=== PATIENT | female | born 1975 | race African-American/Black ===

== ENCOUNTER 2016-11-23 01:02 | Emergency (ER) | payer OTHER ==
[~2016-11-23] VITALS: Ht 160 cm; Wt 96.7 kg
[2016-11-23 01:06] VITALS: TEMP 36.7; Ht 160 cm; Wt 96.7 kg
[2016-11-23] MEDS ORDERED: KETOROLAC TROMETHAMINE 60 MG/2 ML VIAL IM STA (01:26)
[2016-11-23] MEDS ORDERED: PROMETHAZINE HCL INJ 25 MG/ML 1 ML VIAL IM STA (01:26)
[2016-11-23] MEDS ORDERED: DEXAMETHASONE SOD INJ 10 MG/ML VIAL IM ONE (01:30)
[2016-11-23 01:44] VITALS: BP 138/90; PULSE 90; O2SAT 98
--- NOTE | 2016-11-23 04:55 | EMERGENCY ROOM VISIT NOTE ---
ED Visit Note First contact with patient: 01:11 CHIEF COMPLAINT: Migraine headache HISTORY OF PRESENT ILLNESS: This 41-year-old female patient presented to the emergency department with a gradual onset of a severe generalized headache that started worsening over the past 5 days. The patient states the migraine is similar to their typical migraines. There has been associated photophobia, phonophobia, nausea and vomiting. The patient denies fever or chills recently, and there is no weakness or numbness of the extremities. There is no difficulty with speech or vision. No trauma to the head and no neck pain. The pain is severe, constant, and it is slowly increasing in severity. The patient rates the pain as dull and 8/10. The patient has taken nothing for her symptoms. This is not the worst headache of the life and is similar to previous migraines. She states that stress often causes her discomfort to trigger, and she has been under increased stressors at work. Previous imaging studies of the brain have been normal. REVIEW OF SYSTEMS: A review of systems was performed with positives and pertinent negatives listed in the history of present illness. All other systems were reviewed and are negative. ALLERGIES: No known allergies MEDICATIONS: See EMR PMH: See EMR SOCIAL HISTORY: Lives locally with family PHYSICAL EXAM: Vital Signs: Reviewed Nurse's notes, vital signs stable. GENERAL: Black female, who appears in pain, but non toxic in appearance and in no acute distress. MENTAL STATUS: Alert, oriented, and coherent. HEENT: Normocephalic. PERRLA. EOMI. Nares patent without nuchal rigidity. Tympanic membranes pearly woodall without erythema or effusion bilaterally. Mucous membranes moist. NECK: Supple, no nuchal rigidity, nontender, no lymphadenopathy. HEART: Regular rhythm and normal rate without murmurs, ectopy, gallops, or rubs. LUNGS: Clear to auscultation bilaterally without wheezes, rales or rhonchi. No dullness to percussion. No accessory muscle use. No retractions. SKIN: Normal. NEUROLOGICAL: Pupils are round, equal and react to light. The optic fundi are normal and the discs are flat. The patient moves all extremities well and the gait is normal. EMERGENCY DEPARTMENT COURSE: I examined the patient. She evidently has a history of migraine headaches and this feels similar to previous. She does not have signs of meningitis or encephalitis. She does not have neurologic deficit. I discussed options of care with the patient, and elected to provide her 60 mg IM Toradol, 10 mg IM Decadron, 25 mg IM Phenergan. The differential diagnosis includes acute intracranial bleed, meningitis, encephalitis, mass or mass effect, sinusitis, infection, tumor, headache, temporal arteritis and carbon monoxide exposure, and migraine. Current/Historical Medications No Active Prescriptions or Reported Meds Allergies Coded Allergies: No Known Allergies (Unverified , 11/23/16) Vital Signs Date Time Temp Pulse Resp B/P (MAP) Pulse Ox O2 Delivery O2 Flow Rate FiO2 11/23/16 01:44 90 20 138/90 98 11/23/16 01:06 36.7 83 20 141/91 97 Room Air Medications Administered Medications (Trade) Dose Ordered Sig/Jack Route Start Time Stop Time Status Last Admin Dose Admin Dexamethasone Sodium Phosphate (Decadron Inj) 10 mg NOW ONCE IM 11/23/16 01:30 11/23/16 01:31 DC 11/23/16 01:39 10 MG Promethazine HCl (Phenergan Inj) 25 mg NOW STAT IM 11/23/16 01:26 11/23/16 01:28 DC 11/23/16 01:39 25 MG Ketorolac Tromethamine (Toradol Inj) 60 mg NOW STAT IM 11/23/16 01:26 11/23/16 01:28 DC 11/23/16 01:39 60 MG Departure Information Impression Primary Impression: Headache Dispostion Home / Self-Care Condition GOOD Prescriptions No Active Prescriptions or Reported Meds Referrals No Doctor, Assigned (PCP) Forms HOME CARE DOCUMENTATION FORM, IMPORTANT VISIT INFORMATION Patient Instructions My [facility] Additional Instructions You were seen and evaluated today on an emergency basis only. This is not a substitute for, or an effort to provide, complete comprehensive medical care. It is not possible to recognize and treat all injuries or illnesses in a single emergency department visit. For this reason it is recommended that you followup with your primary care physician or neurologist this week for ongoing care and evaluation. Rest today in a quiet, peaceful, dark environment and get a full 8-10 hrs of sleep tonight. Avoid loud noises, smoke/smoking, alcohol, bright lights, stress, or physical exertion today to minimize the chance the headache may return. Continue current medications. Ibuprofen(Motrin, Advil) may be used for fever or pain. Use 600mg every six hours as needed. Take with food. Avoid using more than 2400mg in a 24 hour period. Do not use 2400mg per day for more than three consecutive days without physician direction. Prolonged inappropriate use can lead to stomach upset or ulcers. (AND/OR) Acetaminophen(Tylenol) may be used for fever or pain. Use 1000mg every six hours as needed. Avoid using more than 4000mg in a 24 hour period. Return to the ER for passing out, worsening headache, vision problems, neck stiffness/pain, fevers, vomiting, worsening of your condition, or as needed.
== END 2016-11-23 01:44 | disposition home or self-care (01) ==
LOC: C.EDB 01:03
DX: R51 Headache (principal)

== ENCOUNTER 2022-07-01 19:20 | Inpatient (IN) ==
[2022-07-01] MEDS ORDERED: SODIUM CHLORIDE 0.9% 1000ML 1,000 ML IV SCH (20:00)
[2022-07-01] MEDS ORDERED: VANCOMYCIN CONSULT ACTIVE PRN (20:02)
[2022-07-01] MEDS ORDERED: VANCOMYCIN HCL 2,250 MG in SODIUM CHLORIDE 0.9% 500 ML IV ONE (20:02)
[2022-07-01] MEDS ORDERED: CEFEPIME 2,000 MG/20 ML VIAL IV STA (20:02)
[2022-07-01] MEDS ORDERED: KETOROLAC TROMETHAMINE 15 MG/ML VIAL IV STA (20:03)
[2022-07-01] MEDS ORDERED: SODIUM CHLORIDE 0.9% 1000ML 1,000 ML IV ONE (20:03)
[2022-07-01] MEDS ORDERED: ONDANSETRON INJ 2 MG/ML 2 ML VIAL IV STA (20:03)
[2022-07-01] MEDS ORDERED: ACETAMINOPHEN 1,000 MG/100 ML VIAL IV STA (20:03)
[2022-07-01 20:10] LABS: Appearance Urine Cloudy (Clear); Bacteria Urine Automated Negative (Negative); Bilirubin Urine Negative (Negative); Blood Urine 1+ (Negative); Color Urine Dark Yellow; Glucose Urine UA Negative (Negative); Ketones Urine Trace (Negative); Leukocyte Esterase Urine 1+ (Negative); Nitrite Urine Negative (Negative); Protein Urine 1+ (Negative); RBC Urine Automated 0-4 /hpf (0-4); Specific Gravity Urine 1.022 (1.000-1.030); Urobilinogen Urine Negative (Negative); pH Urine 5.5 (4.5-7.5)
--- NOTE | 2022-07-01 20:11 | Emergency Department Note ---
Impression & Plan Sepsis, Headache, Cellulitis, Leukocytosis, Elevated lactic acid level, Immunocompromised ED Provider Note NAME: ANA MCINTOSH AGE: 46 SEX: F : 1975 ARRIVES VIA: Walk-In INFORMANT: [Patient] ED PROVIDER(S): [Dave Epstein MD] CHIEF COMPLAINT: Headache, rash HISTORY OF PRESENT ILLNESS: The patient is a 46-year-old female with a history of uveitis. She was using Humira and then was switched to Cosentyx. Cosentyx was recently stopped and she is now on an IV infusion, she cannot recall the name of the medication. She states that for the last 3 or so weeks, she has a rash on her feet arms and scalp. Her doctors think the rash is psoriasis brought on by her infusion. The patient states that she has had a headache on the right side for about 2 weeks. Today, she felt chilled and achy and feverish. She was tired. She noticed some lumps on the right side of her head behind her ear and on the right posterior scalp. She states the lumps are sore. There has been no cough or congestion. No shortness of breath. No urinary complaints. No abdominal pain, no vomiting or diarrhea. PMHx/PSHx: See Below SOCIAL HISTORY: See Below. PHYSICAL EXAM: GENERAL: Patient is in no acute distress. HEENT: No acute trauma, normocephalic atraumatic, mucous membranes moist, no nasal congestion. There is a tender half centimeter nodule to the posterior aspect of the right ear. There is a second smaller nodule to the right posterior scalp. NECK: No stridor, no adenopathy, no meningismus, trachea is midline. Flexes the chin to the chest without pain or difficulty. LUNGS: Clear to auscultation bilaterally, no wheeze, no rhonchi, breath sounds equal. HEART: Without murmurs gallops or rubs, regular rate and rhythm. ABDOMEN: Soft, nontender, bowel sounds positive, no peritonitis. EXTREMITIES: No cyanosis or edema, full range of motion of all the joints without pain or difficulty, no signs for acute trauma. NEUROLOGIC: Oriented x 3, no acute motor or sensory deficits, no focal weakness. SKIN: The patient has a scaly rash on her feet, wrists and hands. There is some drainage noted. There is some warmth on the feet consistent with potential cellulitis. DIFFERENTIAL DIAGNOSIS: Sepsis or bacteremia, cellulitis, UTI, viral illness, medication reaction, meningitis, among others. EMERGENCY DEPARTMENT COURSE/PROCEDURES: Prior/Outside records reviewed: Previous ED visit Critical Care Note: I have personally spent 44 minutes of critical care time in the direct management of this patient. This includes bedside care, interpretation of diagnostic studies, and testing, discussion with consultants, patient, and family members, and other required patient management activities. This 44 minutes is in excess of all separately billable procedures. MEDICAL DECISION MAKING: There is a mild leukocytosis, this would be consistent with infection. There is a normal hemoglobin and platelet count. Sodium low at 131. There was an elevation to the creatinine however, this appears baseline looking back at previous testing. Lactic acid level was elevated consistent with potential sepsis/infection. Repeat lactic acid level showed improvement in the value. There was no concerning liver enzyme elevation. testing was negative. Urinalysis showed contamination, no obvious infection. Respiratory bio fire was completely negative. Chest film does not show pneumonia or CHF per my review. Brain CT showed no acute bleed or mass effect. On exam, the patient had a lower extremity cellulitis and also what appeared to be a cellulitis of her scalp. She presented febrile. There was no meningismus. Patient received IV cefepime and IV vancomycin. She was given IV saline, 2 L. She received IV Zofran for nausea, IV Toradol for pain, IV Tylenol for pain. The patient is currently resting comfortably. I do think she requires a hospital stay. She appears to have early sepsis, likely from cellulitis. She is immunocompromised. I suspect her right-sided headache is from the swollen glands noted on exam, the cellulitis of the scalp likely led to the lymph gland swelling. I did speak with the patient and case management, the on-call hospitalist was consulted. DISPOSITION: Patient's presentation and findings warrant a hospital stay. Past Med/Surg History Medical History Acid reflux Hypertension Uveitis Family History Other Family history non-contributory Social History Smoking Status: Never smoker Preferred Language: Albanian Visual Impairment: Partially Limited marital status: current occupational status: employed Feels Safe at Home: Yes Allergies Allergies Allergy/AdvReac Type Severity Reaction Status Date / Time No Known Allergies Allergy Verified 07/01/22 20:06 Home Meds Home Medications Medication Instructions Recorded Confirmed albuterol sulfate 90 mcg/actuation 2 puff inhalation Q4H PRN Wheezing 07/01/22 07/01/22 aerosol inhaler atropine 1 % eye drops 1 drp OPR BID 07/01/22 07/01/22 betamethasone dipropionate 0.05 % 1 applic topical BID 07/01/22 07/01/22 topical cream brimonidine 0.15 % eye drops 1 drp OPB TID 07/01/22 07/01/22 difluprednate 0.05 % eye drops 1 drp OPR QID 07/01/22 07/01/22 dorzolamide 2 % eye drops 1 drp OPB TID 07/01/22 07/01/22 lisinopril 20 mg tablet 20 mg PO QAM 07/01/22 07/01/22 lurasidone 20 mg tablet (Latuda) 0 mg PO QAM 07/01/22 07/01/22 prednisolone acetate 1 % eye 1 drp OPB 6XD 07/01/22 07/01/22 drops,suspension tacrolimus 0.1 % topical ointment 1 applic topical BID 07/01/22 07/01/22 timolol maleate 0.5 % eye drops 1 drp OPB BID 07/01/22 07/01/22 triamcinolone acetonide 0.1 % 1 applic topical BID 07/01/22 07/01/22 topical cream Results & Data (ED) Vital Signs Vital Signs - 24 hr 07/01/22 19:25 07/01/22 19:40 07/01/22 21:00 Temperature 38.1 C H Temperature Source Temporal Artery Scan Pulse Rate 123 H 115 H Pulse Rate [Apical] 105 H Pulse Rhythm [Apical] Regular Respiratory Rate 18 14 Respiratory Effort / Characteristics Non-Labored Spontaneous Non-Labored Spontaneous Respiratory Depth Normal Normal Respiratory Pattern Regular Blood Pressure 153/84 H Blood Pressure [Left Arm] 153/94 H Blood Pressure Mean 107 Blood Pressure Mean [Left Arm] 113 Blood Pressure Position Sitting Pulse Oximetry 98 98 Oxygen Delivery Method Room Air Room Air Sepsis Recent Fever Within 48 Hours Yes Sepsis New/Unexplained Change in Mental Status No Sepsis Action Taken by Nursing No Action Required 07/01/22 23:03 07/01/22 23:35 07/02/22 00:11 Temperature Temperature Source Pulse Rate 83 Pulse Rate [Apical] 90 80 Pulse Rhythm [Apical] Respiratory Rate 18 16 Respiratory Effort / Characteristics Respiratory Depth Respiratory Pattern Blood Pressure Blood Pressure [Left Arm] 135/113 H 119/80 Blood Pressure Mean Blood Pressure Mean [Left Arm] 120 93 Blood Pressure Position Pulse Oximetry 99 97 Oxygen Delivery Method Room Air Room Air Sepsis Recent Fever Within 48 Hours Sepsis New/Unexplained Change in Mental Status Sepsis Action Taken by Usp Medications Current Medication List: was personally reviewed by me Laboratory Data Attestation: I reviewed the patient's lab results. 07/01/22 19:47 07/01/22 19:47 Lab Results 07/01/22 07/01/22 07/01/22 Range/Units 19:41 19:47 19:47 WBC 13.95 H (4.8-10.8) K/ul RBC 4.40 (4.20-5.40) M/uL Hgb 13.7 (12.0-16.0) g/dl Hct 39.5 (37.0-47.0) % MCV 89.8 (80.0-100.0) fL MCH 31.1 (25.0-34.0) pg MCHC 34.7 (32.0-36.0) g/dL RDW Std Deviation 41.3 (36.4-46.3) fL RDW Coeff of Rosario 12.6 (11.5-14.5) % Plt Count 286 (130-400) K/uL MPV 10.0 (9.4-12.4) fL Immature Gran % (Auto) 0.3 % Neut % (Auto) 66.5 % Lymph % (Auto) 17.5 % Cottle % (Auto) 13.0 % Eos % (Auto) 2.5 % Baso % (Auto) 0.2 % Neut # (Auto) 9.27 H (1.40-6.50) K/uL Lymph # (Auto) 2.44 (1.2-3.4) K/uL Cottle # (Auto) 1.82 H (0.11-0.59) K/uL Eos # (Auto) 0.35 (0-0.50) K/uL Baso # (Auto) 0.03 (0-0.2) K/uL Immature Gran # (Auto) 0.04 (0.01-0.20) K/uL Sodium 131 L (136-145) mmol/L Potassium 3.6 (3.5-5.1) mmol/L Chloride 98 (98-107) mmol/L Carbon Dioxide 24 (21-32) mmol/L Anion Gap 9 (3-11) BUN 12 (6-23) mg/dl Creatinine 1.51 H (0.6-1.2) mg/dl Est Cr Clr Drug Dosing 49.2 ml/min Est GFR ( Amer) 46.9 ml/min Est GFR (Non-Af Amer) 40.4 ml/min BUN/Creatinine Ratio 7.9 L (10-20) Glucose 108 H (70-99(Fasting)) mg/dl Lactate (0.4-2.0) mmol/L Calcium 9.3 (8.6-10.3) mg/dl Magnesium 1.9 (1.7-2.4) mg/dl Total Bilirubin 0.4 (0.2-1.0) mg/dl AST 17 (13-39) U/L ALT 11 (7-52) U/L Alkaline Phosphatase 48 (34-104) U/L Total Protein 8.1 (6.0-8.3) gm/dl Albumin 4.1 (3.4-5.0) gm/dl Globulin 4.0 (2.5-4.0) gm/dl Albumin/Globulin Ratio 1.0 (0.9-2) HCG, Qual (Negative) Urine Color Dark Yellow Urine Appearance Cloudy A (Clear) Urine pH 5.5 (4.5-7.5) Ur Specific [place] 1.022 (1.000-1.030) Urine Protein 1+ H (Negative) Urine Glucose (UA) Negative (Negative) Urine Ketones Trace H (Negative) Urine Blood 1+ H (Negative) Urine Nitrite Negative (Negative) Urine Bilirubin Negative (Negative) Urine Urobilinogen Negative (Negative) Ur Leukocyte Esterase 1+ H (Negative) Urine WBC (Auto) 10-30 H (0-5) /hpf Urine RBC (Auto) 0-4 (0-4) /hpf U Hyaline Cast (Auto) 10-30 H (0-5) /lpf U Epithel Cells (Auto) 10-20 H (0-5) /lpf Urine Bacteria (Auto) Negative (Negative) Urine Crystals Calcium Oxalate A (None Prsent) Calcium Oxalate Crystal Present A (None Prsent) Urine Yeast Not Reportable Adenovirus (PCR) (NotDetected) B. pertussis DNA (PCR) (NotDetected) B.parapertussis DNA PCR (NotDetected) Lyme Disease IgG Ab (Negative) Lyme Disease IgM Ab (Negative) C. pneumoniae DNA (PCR) (NotDetected) Coronavirus OC43 (PCR) (NotDetected) Coronavirus HKU1 (PCR) (NotDetected) Coronavirus 229E (PCR) (NotDetected) SARS-CoV-2 (PCR) (NotDetected) Coronavirus NL63 (PCR) (NotDetected) Human Metapneumovir PCR (NotDetected) Influenza Type A (PCR) (NotDetected) Influenza Type B (PCR) (NotDetected) M. pneumoniae (PCR) (NotDetected) Parainfluenza 1 (PCR) (NotDetected) Parainfluenza 2 (PCR) (NotDetected) Parainfluenza 3 (PCR) (NotDetected) Parainfluenza 4 (PCR) (NotDetected) RSV (PCR) (NotDetected) Entero/Rhino (PCR) (NotDetected) 07/01/22 07/01/22 07/01/22 Range/Units 19:47 20:10 20:24 WBC (4.8-10.8) K/ul RBC (4.20-5.40) M/uL Hgb (12.0-16.0) g/dl Hct (37.0-47.0) % MCV (80.0-100.0) fL MCH (25.0-34.0) pg MCHC (32.0-36.0) g/dL RDW Std Deviation (36.4-46.3) fL RDW Coeff of Rosario (11.5-14.5) % Plt Count (130-400) K/uL MPV (9.4-12.4) fL Immature Gran % (Auto) % Neut % (Auto) % Lymph % (Auto) % Cottle % (Auto) % Eos % (Auto) % Baso % (Auto) % Neut # (Auto) (1.40-6.50) K/uL Lymph # (Auto) (1.2-3.4) K/uL Cottle # (Auto) (0.11-0.59) K/uL Eos # (Auto) (0-0.50) K/uL Baso # (Auto) (0-0.2) K/uL Immature Gran # (Auto) (0.01-0.20) K/uL Sodium (136-145) mmol/L Potassium (3.5-5.1) mmol/L Chloride (98-107) mmol/L Carbon Dioxide (21-32) mmol/L Anion Gap (3-11) BUN (6-23) mg/dl Creatinine (0.6-1.2) mg/dl Est Cr Clr Drug Dosing ml/min Est GFR ( Amer) ml/min Est GFR (Non-Af Amer) ml/min BUN/Creatinine Ratio (10-20) Glucose (70-99(Fasting)) mg/dl Lactate 2.8 H* (0.4-2.0) mmol/L Calcium (8.6-10.3) mg/dl Magnesium (1.7-2.4) mg/dl Total Bilirubin (0.2-1.0) mg/dl AST (13-39) U/L ALT (7-52) U/L Alkaline Phosphatase (34-104) U/L Total Protein (6.0-8.3) gm/dl Albumin (3.4-5.0) gm/dl Globulin (2.5-4.0) gm/dl Albumin/Globulin Ratio (0.9-2) HCG, Qual Negative (Negative) Urine Color Urine Appearance (Clear) Urine pH (4.5-7.5) Ur Specific [place] (1.000-1.030) Urine Protein (Negative) Urine Glucose (UA) (Negative) Urine Ketones (Negative) Urine Blood (Negative) Urine Nitrite (Negative) Urine Bilirubin (Negative) Urine Urobilinogen (Negative) Ur Leukocyte Esterase (Negative) Urine WBC (Auto) (0-5) /hpf Urine RBC (Auto) (0-4) /hpf U Hyaline Cast (Auto) (0-5) /lpf U Epithel Cells (Auto) (0-5) /lpf Urine Bacteria (Auto) (Negative) Urine Crystals (None Prsent) Calcium Oxalate Crystal (None Prsent) Urine Yeast Adenovirus (PCR) Not Detected (NotDetected) B. pertussis DNA (PCR) Not Detected (NotDetected) B.parapertussis DNA PCR Not Detected (NotDetected) Lyme Disease IgG Ab Negative (Negative) Lyme Disease IgM Ab Negative (Negative) C. pneumoniae DNA (PCR) Not Detected (NotDetected) Coronavirus OC43 (PCR) Not Detected (NotDetected) Coronavirus HKU1 (PCR) Not Detected (NotDetected) Coronavirus 229E (PCR) Not Detected (NotDetected) SARS-CoV-2 (PCR) Not Detected (NotDetected) Coronavirus NL63 (PCR) Not Detected (NotDetected) Human Metapneumovir PCR Not Detected (NotDetected) Influenza Type A (PCR) Not Detected (NotDetected) Influenza Type B (PCR) Not Detected (NotDetected) M. pneumoniae (PCR) Not Detected (NotDetected) Parainfluenza 1 (PCR) Not Detected (NotDetected) Parainfluenza 2 (PCR) Not Detected (NotDetected) Parainfluenza 3 (PCR) Not Detected (NotDetected) Parainfluenza 4 (PCR) Not Detected (NotDetected) RSV (PCR) Not Detected (NotDetected) Entero/Rhino (PCR) Not Detected (NotDetected) 07/01/22 Range/Units 22:22 WBC (4.8-10.8) K/ul RBC (4.20-5.40) M/uL Hgb (12.0-16.0) g/dl Hct (37.0-47.0) % MCV (80.0-100.0) fL MCH (25.0-34.0) pg MCHC (32.0-36.0) g/dL RDW Std Deviation (36.4-46.3) fL RDW Coeff of Rosario (11.5-14.5) % Plt Count (130-400) K/uL MPV (9.4-12.4) fL Immature Gran % (Auto) % Neut % (Auto) % Lymph % (Auto) % Cottle % (Auto) % Eos % (Auto) % Baso % (Auto) % Neut # (Auto) (1.40-6.50) K/uL Lymph # (Auto) (1.2-3.4) K/uL [place]le # (Auto) (0.11-0.59) K/uL Eos # (Auto) (0-0.50) K/uL Baso # (Auto) (0-0.2) K/uL Immature Gran # (Auto) (0.01-0.20) K/uL Sodium (136-145) mmol/L Potassium (3.5-5.1) mmol/L Chloride (98-107) mmol/L Carbon Dioxide (21-32) mmol/L Anion Gap (3-11) BUN (6-23) mg/dl Creatinine (0.6-1.2) mg/dl Est Cr Clr Drug Dosing ml/min Est GFR ( Amer) ml/min Est GFR (Non-Af Amer) ml/min BUN/Creatinine Ratio (10-20) Glucose (70-99(Fasting)) mg/dl Lactate 0.8 (0.4-2.0) mmol/L Calcium (8.6-10.3) mg/dl Magnesium (1.7-2.4) mg/dl Total Bilirubin (0.2-1.0) mg/dl AST (13-39) U/L ALT (7-52) U/L Alkaline Phosphatase (34-104) U/L Total Protein (6.0-8.3) gm/dl Albumin (3.4-5.0) gm/dl Globulin (2.5-4.0) gm/dl Albumin/Globulin Ratio (0.9-2) HCG, Qual (Negative) Urine Color Urine Appearance (Clear) Urine pH (4.5-7.5) Ur Specific [place] (1.000-1.030) Urine Protein (Negative) Urine Glucose (UA) (Negative) Urine Ketones (Negative) Urine Blood (Negative) Urine Nitrite (Negative) Urine Bilirubin (Negative) Urine Urobilinogen (Negative) Ur Leukocyte Esterase (Negative) Urine WBC (Auto) (0-5) /hpf Urine RBC (Auto) (0-4) /hpf U Hyaline Cast (Auto) (0-5) /lpf U Epithel Cells (Auto) (0-5) /lpf Urine Bacteria (Auto) (Negative) Urine Crystals (None Prsent) Calcium Oxalate Crystal (None Prsent) Urine Yeast Adenovirus (PCR) (NotDetected) B. pertussis DNA (PCR) (NotDetected) B.parapertussis DNA PCR (NotDetected) Lyme Disease IgG Ab (Negative) Lyme Disease IgM Ab (Negative) C. pneumoniae DNA (PCR) (NotDetected) Coronavirus OC43 (PCR) (NotDetected) Coronavirus HKU1 (PCR) (NotDetected) Coronavirus 229E (PCR) (NotDetected) SARS-CoV-2 (PCR) (NotDetected) Coronavirus NL63 (PCR) (NotDetected) Human Metapneumovir PCR (NotDetected) Influenza Type A (PCR) (NotDetected) Influenza Type B (PCR) (NotDetected) M. pneumoniae (PCR) (NotDetected) Parainfluenza 1 (PCR) (NotDetected) Parainfluenza 2 (PCR) (NotDetected) Parainfluenza 3 (PCR) (NotDetected) Parainfluenza 4 (PCR) (NotDetected) RSV (PCR) (NotDetected) Entero/Rhino (PCR) (NotDetected) Administered Medications Discontinued Medications Hydromorphone HCl (Hydromorphone Inj 0.5 Mg/0.5 Ml Syr) 0.5 mg IV NOW STA Stop: 07/01/22 22:44 Last Admin: 07/01/22 23:07 Dose: 0.5 mg Documented By: BRAEDEN Sodium Chloride (Nss 1000ml) 1,000 mls @ 999 mls/hr IV .Q1H1M [id number] Stop: 07/01/22 21:00 Last Infusion: 07/01/22 21:25 Dose: 0 mls/hr Documented By: Admin: 07/01/22 20:15 Dose: 999 mls/hr Documented By: BRAEDEN Cefepime HCl (Maxipime) 2,000 mg in 20 mls @ 5 mls/min IV NOW STA; Protocol Stop: 07/01/22 20:05 Last Admin: 07/01/22 20:20 Dose: 5 mls/min Documented By: BRAEDEN Vancomycin HCl 2,250 mg/ (Sodium Chloride) 545 mls @ 200 mls/hr IV NOW ONE Stop: 07/01/22 22:45 Last Admin: 07/01/22 20:59 Dose: 200 mls/hr Documented By: BRAEDEN Sodium Chloride (Nss 1000ml) 1,000 mls @ 999 mls/hr IV .Q1H1M ONE Stop: 07/01/22 21:03 Last Infusion: 07/01/22 21:25 Dose: 0 mls/hr Documented By: Admin: 07/01/22 20:15 Dose: 999 mls/hr Documented By: BRAEDEN Acetaminophen (Ofirmev) 1,000 mg in 100 mls @ 400 mls/hr IV NOW STA Stop: 07/01/22 20:17 Last Infusion: 07/01/22 21:13 Dose: 0 mls/hr Documented By: Admin: 07/01/22 20:15 Dose: 400 mls/hr Documented By: BRAEDEN Ketorolac Tromethamine (Ketorolac Tromethamine 15 Mg/Ml Vial) 15 mg IV NOW STA Stop: 07/01/22 20:04 Last Admin: 07/01/22 20:15 Dose: 15 mg Documented By: BRAEDEN Ondansetron HCl (Ondansetron Inj 2 Mg/Ml 2 Ml Vial) 4 mg IV NOW STA Stop: 07/01/22 20:04 Last Admin: 07/01/22 20:15 Dose: 4 mg Documented By: BRAEDEN Imaging Data Attestation: I personally reviewed and interpreted this imaging study as follows: My Impression: Chest x-ray: Per my review there is no pneumonia, CHF or pneumothorax. Radiologist's Impression: Head CT 07/01/22 20:02 Exam(s): CT HEAD Without Contrast EXAM: CT Head Without Intravenous Contrast CLINICAL HISTORY: Reason for exam: headache. TECHNIQUE: Axial computed tomography images of the head/brain without intravenous contrast. Automated exposure control was utilized for the study. A dose lowering technique was utilized adhering to the principles of ALARA. COMPARISON: No relevant prior studies available. FINDINGS: No acute intracranial hemorrhage. No midline shift or mass effect. The territorial woodall-white matter differentiation is maintained throughout. The ventricles and sulci are commensurate with age. The visualized orbits appear grossly unremarkable. The calvarium is intact. The visualized paranasal sinuses and mastoid air cells are grossly clear. IMPRESSION: No acute intracranial hemorrhage, midline shift, or mass effect. Electronically signed by: Mauro Barnard MD 07/01/22 21:35 PM Discharge Plan Visit Data Chief Complaint: Headache Stated Complaint: HEADACHE FOR 2 WEEKS, KNOT BEHIND EAR ED Provider: Dave Epstein Discharge Problem: Sepsis, Headache, Cellulitis, Leukocytosis, Elevated lactic acid level, Immunocompromised Patient Disposition: Admitted As Inpatient Condition: Fair Forms Stand Alone Forms: [facility] Prescriptions Prescriptions: No Action lisinopril 20 mg Tablet 20 mg PO QAM triamcinolone acetonide 0.1 % Cream 1 applic TOPICAL BID Rx Instructions: APPLY TO HANDS & FEET prednisolone acetate 1 % Drops,Suspension 1 drp OPB 6XD tacrolimus 0.1 % Ointment 1 applic TOPICAL BID Rx Instructions: APPLY TO HANDS & FEET betamethasone dipropionate 0.05 % Cream 1 applic TOPICAL BID Rx Instructions: APPLY TO HANDS & FEET albuterol sulfate 90 mcg/actuation HFA aerosol inhaler 2 puff INHALATION Q4H PRN (Reason: Wheezing) timolol maleate 0.5 % Drops 1 drp OPB BID atropine 1 % Drops 1 drp OPR BID brimonidine 0.15 % Drops 1 drp OPB TID Rx Instructions: administer approximately 8 hours apart dorzolamide 2 % Drops 1 drp OPB TID difluprednate 0.05 % Drops 1 drp OPR QID Rx Instructions: start 24 hours after surgery lurasidone [Latuda] 20 mg Tablet 0 mg PO QAM Rx Instructions: PT UNSURE OF STRENGTH, STATED "LOWEST DOSE", UNABLE TO VERIFY WITH GMG OR EXT MED HX. must administer with food (at least 350 calories) Referrals Referrals: PCP,NO [Primary Care Provider] -
[2022-07-01 20:13] LABS: Basophils # (auto) 0.03 K/uL (0-0.2); Basophils % (auto) 0.2 %; Eosinophils # (auto) 0.35 K/uL (0-0.50); Eosinophils % (auto) 2.5 %; Hematocrit (blood only) 39.5 % (37.0-47.0); Hemoglobin 13.7 g/dl (12.0-16.0); Immature Granulocytes # (auto) 0.04 K/uL (0.01-0.20); Immature Granulocytes % (auto) 0.3 %; Lymphocytes # (auto) 2.44 K/uL (1.2-3.4); Lymphocytes % (auto) 17.5 %; Mean Corpuscular Hemoglobin 31.1 pg (25.0-34.0); Mean Corpuscular Hgb Conc 34.7 g/dL (32.0-36.0); Mean Corpuscular Volume 89.8 fL (80.0-100.0); Monocytes # (auto) 1.82 K/uL (0.11-0.59); Neutrophils # (auto) 9.27 K/uL (1.40-6.50); Neutrophils % (auto) 66.5 %; Platelet Count 286 K/uL (130-400); RDW Coefficient of Variation 12.6 % (11.5-14.5); RDW Standard Deviation 41.3 fL (36.4-46.3); White Blood Count 13.95 K/ul (4.8-10.8)
[2022-07-01 20:27] LABS: Calcium Oxalate Crystals Urine Present (None Prsent)
[2022-07-01 20:29] LABS: Albumin Level 4.1 gm/dl (3.4-5.0); BUN Creatinine Ratio 7.9 (10-20); Bilirubin,Total 0.4 mg/dl (0.2-1.0); Calcium 9.3 mg/dl (8.6-10.3); Creatinine Clr Calc Pharmacy 49.2 ml/min; Est GFR (African American) 46.9 ml/min; Est GFR (Non-African American) 40.4 ml/min; Magnesium 1.9 mg/dl (1.7-2.4); Potassium 3.6 mmol/L (3.5-5.1); Total Protein 8.1 gm/dl (6.0-8.3)
[2022-07-01 20:49] LABS: Pregnancy Test, Serum Negative (Negative)
[2022-07-01 21:14] LABS: Lyme Ab IgG w/WB Rflx Negative (Negative); Lyme Ab IgM w/WB Rflx Negative (Negative)
[2022-07-01 21:35] LABS: Adenovirus PCR Not Detected (NotDetected); Bordetella parapertussis PCR Not Detected (NotDetected); Bordetella pertussis PCR Not Detected (NotDetected); Chlamydia pneumoniae PCR Not Detected (NotDetected); Coronavirus 229E PCR Not Detected (NotDetected); Coronavirus CoV-2 (COVID19)PCR Not Detected (NotDetected); Coronavirus HKU1 PCR Not Detected (NotDetected); Coronavirus NL63 PCR Not Detected (NotDetected); Coronavirus OC43PCR Not Detected (NotDetected); Human Metapneumovirus PCR Not Detected (NotDetected); Influenza A PCR Not Detected (NotDetected); Influenza B PCR Not Detected (NotDetected); Mycoplasma pneumoniae PCR Not Detected (NotDetected); Parainfluenza Virus 1 PCR Not Detected (NotDetected); Parainfluenza Virus 2 PCR Not Detected (NotDetected); Parainfluenza Virus 3 PCR Not Detected (NotDetected); Parainfluenza Virus 4 PCR Not Detected (NotDetected); Respiratory Syncytial VirusPCR Not Detected (NotDetected); Rhinovirus/Enterovirus PCR Not Detected (NotDetected)
--- NOTE | 2022-07-01 21:36 | CT Scan Report ---
Exam(s): CT HEAD Without Contrast EXAM: CT Head Without Intravenous Contrast CLINICAL HISTORY: Reason for exam: headache. TECHNIQUE: Axial computed tomography images of the head/brain without intravenous contrast. Automated exposure control was utilized for the study. A dose lowering technique was utilized adhering to the principles of ALARA. COMPARISON: No relevant prior studies available. FINDINGS: No acute intracranial hemorrhage. No midline shift or mass effect. The territorial woodall-white matter differentiation is maintained throughout. The ventricles and sulci are commensurate with age. The visualized orbits appear grossly unremarkable. The calvarium is intact. The visualized paranasal sinuses and mastoid air cells are grossly clear. IMPRESSION: No acute intracranial hemorrhage, midline shift, or mass effect. Electronically signed by: Mauro Barnard MD 07/01/22 21:35 PM
[2022-07-01] MEDS ORDERED: HYDROmorphone INJ 0.5 MG/0.5 ML SYR IV STA (22:43)
[2022-07-02] MEDS ORDERED: POLYETHYLENE (MIRALAX) 17 GM PACK PO PRN (01:43)
[2022-07-02] MEDS ORDERED: VANCOMYCIN HCL 1,000 MG in SODIUM CHLORIDE 0.9% 250 ML IV SCH (01:43)
[2022-07-02] MEDS ORDERED: ALBUTEROL HFA 8 GM INHALER INH PRN (01:43)
[2022-07-02] MEDS ORDERED: NITROGLYCERIN SL 0.4 MG/TAB TAB SL PRN (01:43)
[2022-07-02] MEDS ORDERED: ONDANSETRON INJ 2 MG/ML 2 ML VIAL IV PRN (01:43)
[2022-07-02] MEDS ORDERED: VANCOMYCIN CONSULT ACTIVE PRN (01:43)
[2022-07-02] MEDS: SODIUM CHLORIDE 0.9% 1000ML 1,000 ML IV SCH ×3 (01:48→16:43)
[2022-07-02] MEDS ORDERED: PIPERACILLIN/TAZOBACTAM 4.5 GM in DEXTROSE 5% 100 ML IV ONE (04:00)
--- NOTE | 2022-07-02 04:01 | History and Physical Report ---
DATE OF ADMISSION: 07/01/2022. CHIEF COMPLAINT: Headache and fever. 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 The patient was on Humira, leflunomide, methotrexate, Cosentyx, prednisone ophthalmic for uveitis. Currently, she is on infliximab and she states she had 4 cycles of infliximab every 3 weeks, last was 4 weeks ago, and she broke up in a rash in her palms, in her feet, and in her wrist. Dermatology thinks this is likely pustular psoriasis from the infliximab and she is on steroid creams, but it is not helping. She has still lot of pain in the palms and she is also having severe headache. She says her scalp is white and today she also noticed a bump behind the right side of the ear.Also she is having headaches, constant, very severe headache for the last couple of weeks, and she also spiked a fever today. That is the reason she came to the ER .She had a temperature spike of 38.1 in the ER and white count of 13.9, possible UTI. Respiratory BioFire negative. CT of the head was no acute findings. Initial lactic acid was 2.8, repeat after fluid resuscitation 0.8. Received vancomycin and cefepime in the ER, resting comfortably, hemodynamically stable currently. Complains of severe headache and tender bump behind the right ear and soreness with the rash in the extremities. Denies any dizziness. No earache, no runny nose, no sore throat, no cough, no difficulty swallowing. No chest pain. Has some nausea. No shortness of breath, no cough, no abdominal pain. Normal bowel and bladder movements.Reviewing medication list she was on Truvada seems for one month. When asked about it patient says she took it for safety but she has no risk factors and was never tested for HIV. ALLERGIES: No known drug allergies. PAST MEDICAL HISTORY: As mentioned above. PAST SURGICAL HISTORY: EGDs, injection of the tendon, capsular injection of eye drug. MEDICATIONS: The patient is on albuterol 2 puffs inhalation every 4 hours p.r.n., atropine 1 drop opt b.i.d., betamethasone application topical b.i.d., brimonidine 1 drop ophthalmic t.i.d., difluprednate ophthalmic q.i.d., dorzolamide ophthalmic t.i.d., lisinopril 20 mg p.m., Latuda daily, prednisolone acetate 1 drop ophthalmic 6 times daily, tacrolimus topical b.i.d., timolol 1 drop ophthalmic b.i.d., triamcinolone topical b.i.d. FAMILY HISTORY: Significant for maternal grandfather with alcoholism; paternal grandfather with alcoholism; daughter has asthma; paternal grandfather has asthma; father has diabetes; mother has stroke, brain aneurysm, hypertension. SOCIAL HISTORY: . Quit smoking in 2016. Smoked 0.2 packs a day for 0.5 years. No alcohol, no drug use. REVIEW OF SYSTEMS: As per HPI. Rest of the review of systems is negative. PHYSICAL EXAMINATION: GENERAL: The patient is of moderate build, not in acute distress. VITAL SIGNS: Temperature 38.1, pulse 105, respiratory rate 14, blood pressure 153/94, oxygen 98% on room air. HEENT: Left eye is blind. No facial droop. Oral mucosa moist. tender enlarged lymph node seen in the posterior aspect of the right ear. NECK: No neck masses noted. Supple. CARDIOVASCULAR: S1 and S2 heard. Regular rate and rhythm. No murmur, no gallop. RESPIRATORY SYSTEM: Normal AP diameter. No accessory muscle use. No wheezing or crackles. ABDOMEN: Soft, bowel sounds present, nontender, no distention. CENTRAL NERVOUS SYSTEM: Cranial nerves II-XII grossly intact, nonfocal. EXTREMITIES: No edema, no erythema. SKIN: Pustular rash seen in the feet and soles and palms and wrist. LABORATORY DATA: WBC 13.9, hemoglobin 13.7, hematocrit 39.5, platelets 286. Sodium 131, potassium 3.6, chloride 98, CO2 of 24, BUN 12, creatinine 1.5, serum glucose 108. Lactate 2.8, repeat is 0.8, calcium 9.3, magnesium 1.9, total bilirubin 0.4, AST 17, ALT 11, alkaline phosphatase 48. HCG qualitative negative. Urinalysis, +1 leukocyte esterase. Respiratory BioFire negative. IMAGING DATA: CT of the head, no acute findings. Chest x-ray, no acute findings. ASSESSMENT AND PLAN: This 46-year-old female presents with headache and fever. 1. Headache and fever:Possible sepsis. Neck is supple. Has a temperature spike of 38.1, ongoing headache for the last 2 weeks. Initial lactic acid was 2.8,repeat 0.8. elevated white count. She has a tender lymph node in the right posterior ear. Has rash in her arms, rash on her hands and soles, possible source of infection, possible sepsis. Empirically started on vancomycin and cefepime in the ER. Will continue with vancomycin and Zosyn, fluids. Follow the cultures. Monitor closely in the [facility]. IV fluids. Monitor the response. 2. Rash in the hands and also in the feet, and spreading into the legs. Seen by dermatology, thought to be pustular psoriasis from the side effects of infliximab, on steroid creams, but it is not helping. Consider dermatology consult 3. History of uveitis: On infliximab currently, seems to be having side effects. Will consult Rheumatology 4. Chronic kidney disease stage III: Presently with creatinine of 1.5, seems to be around baseline. Will follow the labs. 5. History of hypertension: On lisinopril, with holding parameters. Will monitor the blood pressure. 6. Uveitis: Continue her home eye drops. 7. Glaucoma: Continue her eye drops. 8. Deep venous thrombosis prophylaxis: Placed her on Lovenox. DISPOSITION: Closely monitor in the [facility]. PT/OT prior to discharge. Social service to help with discharge planning. Job ID: [id number]
[2022-07-02] MEDS: BRIMONIDINE TARTRATE-P 0.15% 5 ML BTL OPB SCH ×3 (06:05→21:46)
[2022-07-02] MEDS: prednisoLONE acetate 1% OP SUSP 5 ML BTL OPB SCH ×6 (06:07→21:47)
[2022-07-02 07:18] LABS: Basophils # (auto) 0.03 K/uL (0-0.2); Basophils % (auto) 0.3 %; Eosinophils # (auto) 0.35 K/uL (0-0.50); Eosinophils % (auto) 3.8 %; Hematocrit (blood only) 35.8 % (37.0-47.0); Hemoglobin 11.8 g/dl (12.0-16.0); Immature Granulocytes # (auto) 0.02 K/uL (0.01-0.20); Immature Granulocytes % (auto) 0.2 %; Lymphocytes # (auto) 2.47 K/uL (1.2-3.4); Lymphocytes % (auto) 26.6 %; Mean Corpuscular Hemoglobin 30.4 pg (25.0-34.0); Mean Corpuscular Volume 92.3 fL (80.0-100.0); Mean Platelet Volume 10.2 fL (9.4-12.4); Monocytes # (auto) 1.72 K/uL (0.11-0.59); Monocytes % (auto) 18.6 %; Neutrophils # (auto) 4.68 K/uL (1.40-6.50); Neutrophils % (auto) 50.5 %; Platelet Count 240 K/uL (130-400); RDW Coefficient of Variation 12.8 % (11.5-14.5); RDW Standard Deviation 43.7 fL (36.4-46.3); Red Blood Count 3.88 M/uL (4.20-5.40); White Blood Count 9.27 K/ul (4.8-10.8)
--- NOTE | 2022-07-02 07:41 | XRay Report ---
XR chest 1V portable CLINICAL HISTORY: weakness COMPARISON STUDY: Chest radiograph December 24, 2021. FINDINGS: Lung volumes are normal. Lungs are clear. There is no pneumothorax or pleural effusion. Car diac size is normal. There is no evidence for pulmonary edema. Bilateral hilar prominence is noted. IMPRESSION: 1. No acute cardiopulmonary findings. 2. Bilateral hilar prominence. This could reflect pulmonary vessels however lymphadenopathy could brii ear similar. Nonemergent chest CT with contrast is recommended for further evaluation. ACT 112: Positive. There are findings on this exam that require communication between the performing entity and the patient following Patient Test Result Information Act ([place] Act 112) guidelines. Electronically signed by: Juan Carlos Jones M.D. 07/02/2022 7:38 AM
[2022-07-02 08:24] LABS: BUN Creatinine Ratio 8.3 (10-20); Calcium 8.5 mg/dl (8.6-10.3); Est GFR (African American) 49.2 ml/min; Est GFR (Non-African American) 42.5 ml/min; Magnesium 1.9 mg/dl (1.7-2.4); Potassium 3.9 mmol/L (3.5-5.1)
[2022-07-02] MEDS: LURASIDONE HCL 40 MG TAB PO SCH (08:34)
[2022-07-02] MEDS: [UNRECOGNIZED DRUG - REMARK] SCH ×2 (08:34→13:29)
[2022-07-02] MEDS: VANCOMYCIN HCL 1,500 MG in SODIUM CHLORIDE 0.9% 500 ML IV SCH (08:39)
[2022-07-02] MEDS: HYDROmorphone INJ 0.5 MG/0.5 ML SYR IV PRN ×2 (08:41→19:33)
[2022-07-02] MEDS: ENOXAPARIN INJ 40 MG/0.4 ML SYR SQ SCH (08:42)
[2022-07-02] MEDS: lisinopril 20 MG TAB PO SCH (08:43)
[2022-07-02] MEDS: ATROPINE SULFATE 1% OP SOLN 5 ML BTL OPR SCH ×2 (08:44→20:21)
--- NOTE | 2022-07-02 08:44 | Pharmacy Report ---
Pharmacy PK ABX Note - Date of Service July 02, 2022 - Assessment and Plan Assessment 46 year old F receiving empiric vancomycin and Zosyn for treatment of possible sepsis secondary to unknown source of infection (possible SSTI). Pertinent microbiologic data includes: blood and urine cultures pending, respiratory biofire negative. Patient immunocompromised, secondary to infliximab for sympathetic uveitis. Febrile on admission, leukocytosis improved overnight (14 K -> 9K). Day # 1 of antimicrobial therapy. Plan Vancomycin * Loading dose: 2250 mg IV x 1 * Maintenance dose: 1500 mg IV every 24 hours * Regimen is predicted to achieve target AUC/SHEFALI of 400-600 mg/L.hr * Trough level ordered for: 07/04/22 Zosyn 4.5 g IV q8h - appropriate, no change Pharmacy will continue to follow and will adjust dose/frequency as necessary. Thank you. Pharmacy has transitioned to AUC monitoring for vancomycin. AUC/SHFEALI is the preferred PK/PD target and is associated with decreased risk of nephrotoxicity compared to traditional trough targets.
[2022-07-02] MEDS: DORZOLAMIDE HCL 2% OPH SOLN 10 ML BTL OPB SCH ×3 (08:45→20:21)
[2022-07-02] MEDS: TIMOLOL MALEATE 0.5% OP SOLN 5 ML BTL OP SCH ×2 (08:46→20:20)
[2022-07-02] MEDS: FLUOCINONIDE 0.05% CR 15 GM TUBE EXT SCH ×2 (08:47→20:25)
[2022-07-02] MEDS ORDERED: NON-FORMULARY MEDICATION (Betamethasone Dipropionate 0.05 % Cream) TOP SCH (09:00)
[2022-07-02] MEDS: PIPERACILLIN/TAZOBACTAM 4.5 GM in DEXTROSE 5% 100 ML IV SCH ×2 (11:03→17:38)
[2022-07-02] MEDS: ACETAMINOPHEN 325 MG TAB PO PRN ×2 (11:09→17:43)
--- NOTE | 2022-07-02 14:57 | Hospitalist Progress Note ---
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 Status post IV fluid resuscitation, lactic acid normalized Symptoms getting better. Has right postauricular tender LAD and confluent rashes over the dorsum of her hands and feet. Started on vancomycin and cefepime in the ED, will continue with vancomycin and Zosyn. We will follow-up with culture. ID consult. Discussed with rheumatology 07/02, patient has history of noncompliance, will continue with the topical ointment for now, patient has a scheduled follow-up w [facility] rheumatology coming Tuesday on which patient is advised to maintain to fine tune her psoriasis management. Continue with the steroid cream and tacrolimus ointment. Other chronic medical conditions: Right eye uveitis: On infliximab currently, will hold currently, patient has rheumatology follow-up on of this month. Patient is to maintain this appointment for appropriate treatment plan. CKD stage III: Seems to be at her baseline. HTN: Continue home meds. Left eye blindness: Secondary to left eye glaucoma. 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 Patient was lying in bed, on room air, NAD, reports no new acute event overnight. Patient reports increasing Psoriatic lesions over the hands and feet for the last 2 weeks associated with clear discharge, also had fever 1 day prior to arrival associated with right posterior auricular lymph node enlargement/pain. Patient does not appear to be in distress now, reports feeling slightly better. Discussed the case with rheumatology. We will continue her skin ointments as a part of her psoriasis treatment and treat her infection with antibiotic. She will need to follow-up with rheumatology which is scheduled for on Tuesday next week. She has a history of noncompliance with follow-up visits which has created hindrance in her care. Physical Exam Physical Exam: GENERAL: Alert and oriented x3. NAD, on RA. HEENT: No pallor, no icterus. Pupils equal, round and reactive to light. Oral mucosa moist. Right posterior auricular lymphadenopathy, tender. NECK: No JVD, no neck masses. HEART: S1 and S2 heard. Regular rate and rhythm. No murmur, no gallop. RESPIRATORY SYSTEM: Normal AP diameter. No accessory muscle use. No wheezing, no crackles. ABDOMEN: Soft, bowel sounds present, nontender, no distention. CENTRAL NERVOUS SYSTEM: No facial droop. Speech is clear. Obeys simple commands. Moves extremities. EXTREMITIES: No edema, no erythema seen. skin: Psoriatic lesions over the scalp, dorsum of the upper limbs and lower limbs. Increased psoriatic lesions over dorsum of the hands and feet -pustular rash. Results & Data Results & Data Vital Signs (Past 12 Hours) Vital Signs Temp Pulse Pulse Resp BP Pulse Ox O2 Del Method 07/02/22 14:16 36.9 C 80 18 117/79 97 Room Air 07/02/22 11:16 37.3 C 85 18 141/93 H 100 Room Air 07/02/22 07:57 37.3 C 85 18 171/101 H 100 Room Air 07/02/22 07:43 87 07/02/22 06:11 153/99 H 07/02/22 03:01 83 (1) Sepsis Sepsis acute organ dysfunction status: without acute organ dysfunction Sepsis type: sepsis due to unspecified organism Qualified Code(s): A41.9 - Sepsis, unspecified organism
[2022-07-03] MEDS: SODIUM CHLORIDE 0.9% 1000ML 1,000 ML IV SCH ×2 (00:08→06:00)
[2022-07-03] MEDS: [UNRECOGNIZED DRUG - REMARK] SCH ×3 (00:08→17:14)
[2022-07-03] MEDS: PIPERACILLIN/TAZOBACTAM 4.5 GM in DEXTROSE 5% 100 ML IV SCH ×3 (02:41→17:17)
[2022-07-03] MEDS: cloNIDine HCL 0.1 MG TAB PO PRN ×2 (03:21→20:11)
[2022-07-03] MEDS: BRIMONIDINE TARTRATE-P 0.15% 5 ML BTL OPB SCH ×3 (05:54→21:29)
[2022-07-03] MEDS: prednisoLONE acetate 1% OP SUSP 5 ML BTL OPB SCH ×6 (05:54→21:29)
[2022-07-03 08:46] LABS: Hematocrit (blood only) 34.3 % (37.0-47.0); Hemoglobin 11.8 g/dl (12.0-16.0); Mean Corpuscular Hemoglobin 30.9 pg (25.0-34.0); Mean Corpuscular Hgb Conc 34.4 g/dL (32.0-36.0); Mean Corpuscular Volume 89.8 fL (80.0-100.0); Mean Platelet Volume 9.8 fL (9.4-12.4); Platelet Count 242 K/uL (130-400); RDW Coefficient of Variation 12.8 % (11.5-14.5); RDW Standard Deviation 42.3 fL (36.4-46.3); Red Blood Count 3.82 M/uL (4.20-5.40); White Blood Count 8.89 K/ul (4.8-10.8)
[2022-07-03] MEDS: lisinopril 20 MG TAB PO SCH (08:47)
[2022-07-03] MEDS: LURASIDONE HCL 40 MG TAB PO SCH (08:47)
[2022-07-03] MEDS: DORZOLAMIDE HCL 2% OPH SOLN 10 ML BTL OPB SCH ×3 (08:48→20:13)
[2022-07-03] MEDS: ATROPINE SULFATE 1% OP SOLN 5 ML BTL OPR SCH ×2 (08:48→20:14)
[2022-07-03] MEDS: FLUOCINONIDE 0.05% CR 15 GM TUBE EXT SCH ×2 (08:48→21:30)
[2022-07-03] MEDS: ENOXAPARIN INJ 40 MG/0.4 ML SYR SQ SCH (08:48)
[2022-07-03] MEDS: TIMOLOL MALEATE 0.5% OP SOLN 5 ML BTL OP SCH ×2 (08:49→20:13)
[2022-07-03] MEDS: ACETAMINOPHEN 325 MG TAB PO PRN (08:52)
[2022-07-03] MEDS: VANCOMYCIN HCL 1,500 MG in SODIUM CHLORIDE 0.9% 500 ML IV SCH (08:56)
[2022-07-03 09:05] LABS: BUN Creatinine Ratio 6.9 (10-20); Calcium 8.3 mg/dl (8.6-10.3); Creatinine Clr Calc Pharmacy 57.2 ml/min; Est GFR (African American) 55.7 ml/min; Magnesium 1.7 mg/dl (1.7-2.4); Phosphorus 2.3 mg/dl (2.5-4.9); Potassium 4.1 mmol/L (3.5-5.1)
[2022-07-03] MEDS: HYDROmorphone INJ 0.5 MG/0.5 ML SYR IV PRN ×2 (12:49→19:29)
--- NOTE | 2022-07-03 15:07 | Hospitalist Progress Note ---
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 Status post IV fluid resuscitation, lactic acid normalized At presentation - right postauricular tender LAD and confluent rashes over the dorsum of her hands and feet. Symptoms getting better. Fever getting better. Started on vancomycin and cefepime in the ED, will continue with vancomycin and Zosyn. We will follow-up with culture. ID evaled: c/w vanc and zosyn, with plan to de-escalation to augmentin 500 mg bid for another 10-12 days. Discussed with rheumatology 07/02, patient has history of noncompliance, will continue with the topical ointment for now, patient has a scheduled follow-up with rheumatology coming Tuesday on which patient is advised to maintain to fine tune her psoriasis management. Continue with the steroid cream and tacrolimus ointment. Other chronic medical conditions: Right eye uveitis: On infliximab currently, will hold currently, patient has rheumatology follow-up on of this month. Patient is to maintain this appointment for appropriate treatment plan. CKD stage III: Seems to be at her baseline. HTN: Continue home meds. Left eye blindness: Secondary to left eye glaucoma. 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 Patient was lying in bed, on room air, NAD, reports no new acute event overnight. Patient reports feeling better today and states her drainage from the lesions has gotten better. Patient denies any headache or dizziness or fever or chills or chest pain or sore throat. Patient denies any cough. 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 Physical Exam 2 Physical Exam: GENERAL: Alert and oriented x3. NAD, on RA. HEENT: No pallor, no icterus. Pupils equal, round and reactive to light. Oral mucosa moist. Right posterior auricular lymphadenopathy, tender. NECK: No JVD, no neck masses. HEART: S1 and S2 heard. Regular rate and rhythm. No murmur, no gallop. RESPIRATORY SYSTEM: Normal AP diameter. No accessory muscle use. No wheezing, no crackles. ABDOMEN: Soft, bowel sounds present, nontender, no distention. CENTRAL NERVOUS SYSTEM: No facial droop. Speech is clear. Obeys simple commands. Moves extremities. EXTREMITIES: No edema, no erythema seen. skin: Psoriatic lesions over the scalp, dorsum of the upper limbs and lower limbs. Increased psoriatic lesions over dorsum of the hands and feet -pustular rash. Results & Data Results & Data Vital Signs (Past 12 Hours) Vital Signs Temp Pulse Pulse Resp BP Pulse Ox O2 Del Method 07/03/22 14:52 36.8 C 69 18 142/89 H 99 Room Air 07/03/22 11:08 36.7 C 76 18 129/85 99 Room Air 07/03/22 07:42 37.3 C 86 18 121/82 100 Room Air 07/03/22 07:39 87 (1) Sepsis Sepsis acute organ dysfunction status: without acute organ dysfunction Sepsis type: sepsis due to unspecified organism Qualified Code(s): A41.9 - Sepsis, unspecified organism
[2022-07-03] MEDS: POT PHOSPHATE MONOBASIC W/ SOD TAB PO SCH ×2 (17:15→20:12)
[2022-07-03] MEDS ORDERED: POLYETHYLENE (MIRALAX) 17 GM PACK PO STA (19:39)
[2022-07-04] MEDS: [UNRECOGNIZED DRUG - REMARK] SCH ×3 (00:28→17:51)
[2022-07-04] MEDS: PIPERACILLIN/TAZOBACTAM 4.5 GM in DEXTROSE 5% 100 ML IV SCH ×3 (02:09→17:53)
[2022-07-04] MEDS: prednisoLONE acetate 1% OP SUSP 5 ML BTL OPB SCH ×6 (05:33→22:03)
[2022-07-04] MEDS: BRIMONIDINE TARTRATE-P 0.15% 5 ML BTL OPB SCH ×3 (05:34→22:03)
[2022-07-04] MEDS ORDERED: VANCOMYCIN LEVEL ONE (07:30)
[2022-07-04 07:45] LABS: Hematocrit (blood only) 36.6 % (37.0-47.0); Hemoglobin 12.5 g/dl (12.0-16.0); Mean Corpuscular Hemoglobin 30.8 pg (25.0-34.0); Mean Corpuscular Hgb Conc 34.2 g/dL (32.0-36.0); Mean Corpuscular Volume 90.1 fL (80.0-100.0); Mean Platelet Volume 9.8 fL (9.4-12.4); Platelet Count 249 K/uL (130-400); RDW Coefficient of Variation 12.6 % (11.5-14.5); Red Blood Count 4.06 M/uL (4.20-5.40); White Blood Count 8.53 K/ul (4.8-10.8)
[2022-07-04 08:15] LABS: BUN Creatinine Ratio 5.8 (10-20); Calcium 8.9 mg/dl (8.6-10.3); Creatinine Clr Calc Pharmacy 54.6 ml/min; Est GFR (African American) 51.8 ml/min; Est GFR (Non-African American) 44.7 ml/min; Phosphorus 3.7 mg/dl (2.5-4.9)
[2022-07-04] MEDS: lisinopril 20 MG TAB PO SCH (08:42)
[2022-07-04] MEDS: POT PHOSPHATE MONOBASIC W/ SOD TAB PO SCH ×4 (08:42→20:41)
[2022-07-04] MEDS: LURASIDONE HCL 40 MG TAB PO SCH (08:42)
[2022-07-04] MEDS: ENOXAPARIN INJ 40 MG/0.4 ML SYR SQ SCH (08:42)
[2022-07-04] MEDS: FLUOCINONIDE 0.05% CR 15 GM TUBE EXT SCH ×2 (08:44→20:41)
[2022-07-04] MEDS: ATROPINE SULFATE 1% OP SOLN 5 ML BTL OPR SCH ×2 (08:48→20:42)
[2022-07-04] MEDS: DORZOLAMIDE HCL 2% OPH SOLN 10 ML BTL OPB SCH ×3 (08:48→20:43)
[2022-07-04] MEDS: TIMOLOL MALEATE 0.5% OP SOLN 5 ML BTL OP SCH ×2 (08:48→20:43)
[2022-07-04] MEDS: VANCOMYCIN HCL 1,500 MG in SODIUM CHLORIDE 0.9% 500 ML IV SCH (08:53)
--- NOTE | 2022-07-04 09:30 | Pharmacy Report ---
Pharmacy PK ABX Note - Date of Service July 04, 2022 - Assessment and Plan Assessment 46 year old F receiving vancomycin and Zosyn for treatment of sepsis secondary to infected pustular psoriasis of hands and feet. Blood cultures (-) at 48 hours and urine culture finalized as probable skin ronn. Patient immunocompromised, secondary to infliximab for sympathetic uveitis. VAHE on admission, SCr down- trending. Day # 5 of antimicrobial therapy. Plan Vancomycin * Vancomycin random level this AM, 7.2mcg/mL (~22.5hr level) and predicted to achieve a AUCss of 363mg/L.hr which is subtherapeutic. * Increase maintenance dose: 1000mg IV every 12 hours * Regimen is predicted to achieve target AUC/SHEFALI of 400-600 mg/L.hr * Will repeat a level 07/06 AM Pharmacy will continue to follow and will adjust dose/frequency as necessary. Thank you. Pharmacy has transitioned to AUC monitoring for vancomycin. AUC/SHEFALI is the preferred PK/PD target and is associated with decreased risk of nephrotoxicity compared to traditional trough targets.
[2022-07-04] MEDS ORDERED: FUROSEMIDE 40 MG TAB PO ONE (10:37)
[2022-07-04] MEDS: ACETAMINOPHEN 325 MG TAB PO PRN (11:28)
[2022-07-04] MEDS: HYDROmorphone INJ 0.5 MG/0.5 ML SYR IV PRN ×2 (15:02→20:48)
--- NOTE | 2022-07-04 16:44 | Hospitalist Progress Note ---
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 Status post IV fluid resuscitation, lactic acid normalized At presentation - right postauricular tender LAD and confluent rashes over the dorsum of her hands and feet. Symptoms getting better. Fever getting better. Started on vancomycin and cefepime in the ED, will continue with vancomycin and Zosyn. We will follow-up with culture. ID evaled: c/w vanc and zosyn, with plan to de-escalation to augmentin 500 mg bid for another 10-12 days. Discussed with rheumatology 07/02, patient has history of noncompliance, will continue with the topical ointment for now, patient has a scheduled follow-up with rheumatology coming Tuesday on which patient is advised to maintain to fine tune her psoriasis management. Continue with the steroid cream and tacrolimus ointment. We will transition to oral antibiotic and likely DC tomorrow. Other chronic medical conditions: Right eye uveitis: On infliximab currently, will hold currently, patient has rheumatology follow-up on of this month. Patient is to maintain this appointment for appropriate treatment plan. CKD stage III: Seems to be at her baseline. HTN: Continue home meds. Blood pressure on the higher side in the evening and night, will add amlodipine in the evening. It has been discussed with the patient. Left eye blindness: Secondary to left eye glaucoma. 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 Patient was lying in bed, on room air, NAD, reports no new acute event overnight. Still some swelling on bilateral feet [will give one-time dose of Lasix], drainage has gotten better, no erythema noted, still some painful walking per patient. Patient denies any headache or dizziness or fever or chills or chest pain or sore throat. Patient denies any cough. Physical Exam Physical Exam: GENERAL: Alert and oriented x3. NAD, on RA. HEENT: No pallor, no icterus. Pupils equal, round and reactive to light. Oral mucosa moist. Right posterior auricular lymphadenopathy, tender. NECK: No JVD, no neck masses. HEART: S1 and S2 heard. Regular rate and rhythm. No murmur, no gallop. RESPIRATORY SYSTEM: Normal AP diameter. No accessory muscle use. No wheezing, no crackles. ABDOMEN: Soft, bowel sounds present, nontender, no distention. CENTRAL NERVOUS SYSTEM: No facial droop. Speech is clear. Obeys simple commands. Moves extremities. EXTREMITIES: No edema, no erythema seen. skin: Psoriatic lesions over the scalp, dorsum of the upper limbs and lower limbs. Increased psoriatic lesions over dorsum of the hands and feet -pustular rash. Results & Data Results & Data Vital Signs (Past 12 Hours) Vital Signs Temp Pulse Pulse Resp BP Pulse Ox O2 Del Method 07/04/22 16:08 90 07/04/22 15:05 36.6 C 83 18 127/85 98 Room Air 07/04/22 11:39 37.3 C 78 18 151/92 H 99 Room Air 07/04/22 07:51 37.1 C 76 16 174/105 H 99 Room Air 07/04/22 07:02 72 (1) Sepsis Sepsis acute organ dysfunction status: without acute organ dysfunction Sepsis type: sepsis due to unspecified organism Qualified Code(s): A41.9 - Sepsis, unspecified organism
[2022-07-04] MEDS: VANCOMYCIN HCL 1,000 MG in SODIUM CHLORIDE 0.9% 250 ML IV SCH (20:49)
[2022-07-04] MEDS ORDERED: amLODIPine BESYLATE 5 MG TAB PO SCH (21:00)
[2022-07-04] MEDS ORDERED: FAMOTIDINE 20 MG in SYRINGE 3 ML IV STA (21:02)
[2022-07-05] MEDS: [UNRECOGNIZED DRUG - REMARK] SCH ×2 (00:08→10:32)
[2022-07-05] MEDS: PIPERACILLIN/TAZOBACTAM 4.5 GM in DEXTROSE 5% 100 ML IV SCH ×2 (01:55→09:54)
[2022-07-05] MEDS: prednisoLONE acetate 1% OP SUSP 5 ML BTL OPB SCH ×3 (05:26→14:15)
[2022-07-05] MEDS: BRIMONIDINE TARTRATE-P 0.15% 5 ML BTL OPB SCH ×2 (05:26→14:16)
[2022-07-05 07:46] LABS: Calcium 8.8 mg/dl (8.6-10.3); Potassium 3.8 mmol/L (3.5-5.1)
[2022-07-05 07:52] LABS: BUN Creatinine Ratio 6.5 (10-20); Creatinine Clr Calc Pharmacy 55.2 ml/min; Est GFR (African American) 52.3 ml/min; Est GFR (Non-African American) 45.1 ml/min
[2022-07-05] MEDS: lisinopril 20 MG TAB PO SCH (09:45)
[2022-07-05] MEDS: LURASIDONE HCL 40 MG TAB PO SCH (09:45)
[2022-07-05] MEDS: ENOXAPARIN INJ 40 MG/0.4 ML SYR SQ SCH (09:47)
[2022-07-05] MEDS: DORZOLAMIDE HCL 2% OPH SOLN 10 ML BTL OPB SCH ×2 (09:48→14:16)
[2022-07-05] MEDS: TIMOLOL MALEATE 0.5% OP SOLN 5 ML BTL OP SCH (09:48)
[2022-07-05] MEDS: FLUOCINONIDE 0.05% CR 15 GM TUBE EXT SCH (09:49)
[2022-07-05] MEDS: ATROPINE SULFATE 1% OP SOLN 5 ML BTL OPR SCH (09:49)
[2022-07-05] MEDS: VANCOMYCIN HCL 1,000 MG in SODIUM CHLORIDE 0.9% 250 ML IV SCH (09:55)
[2022-07-05] MEDS: ACETAMINOPHEN 325 MG TAB PO PRN (10:03)
--- NOTE | 2022-07-05 13:48 | Discharge Summary ---
Date of Service July 05, 2022 Admission HPI Per Admitting Provider DATE OF ADMISSION: 07/01/2022. CHIEF COMPLAINT: Headache and fever. 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 The patient was on Humira, leflunomide, methotrexate, Cosentyx, prednisone ophthalmic for uveitis. Currently, she is on infliximab and she states she had 4 cycles of infliximab every 3 weeks, last was 4 weeks ago, and she broke up in a rash in her palms, in her feet, and in her wrist. Dermatology thinks this is likely pustular psoriasis from the infliximab and she is on steroid creams, but it is not helping. She has still lot of pain in the palms and she is also having severe headache. She says her scalp is white and today she also noticed a bump behind the right side of the ear.Also she is having headaches, constant, very severe headache for the last couple of weeks, and she also spiked a fever today. That is the reason she came to the ER .She had a temperature spike of 38.1 in the ER and white count of 13.9, possible UTI. Respiratory BioFire negative. CT of the head was no acute findings. Initial lactic acid was 2.8, repeat after fluid resuscitation 0.8. Received vancomycin and cefepime in the ER, resting comfortably, hemodynamically stable currently. Complains of severe headache and tender bump behind the right ear and soreness with the rash in the extremities. Denies any dizziness. No earache, no runny nose, no sore throat, no cough, no difficulty swallowing. No chest pain. Has some nausea. No shortness of breath, no cough, no abdominal pain. Normal bowel and bladder movements.Reviewing medication list she was on Truvada seems for one month. When asked about it patient says she took it for safety but she has no risk factors and was never tested for HIV. ALLERGIES: No known drug allergies. PAST MEDICAL HISTORY: As mentioned above. PAST SURGICAL HISTORY: EGDs, injection of the tendon, capsular injection of eye drug. MEDICATIONS: The patient is on albuterol 2 puffs inhalation every 4 hours p.r.n., atropine 1 drop opt b.i.d., betamethasone application topical b.i.d., brimonidine 1 drop ophthalmic t.i.d., difluprednate ophthalmic q.i.d., dorzolamide ophthalmic t.i.d., lisinopril 20 mg p.m., Latuda daily, prednisolone acetate 1 drop ophthalmic 6 times daily, tacrolimus topical b.i.d., timolol 1 drop ophthalmic b.i.d., triamcinolone topical b.i.d. FAMILY HISTORY: Significant for maternal grandfather with alcoholism; paternal grandfather with alcoholism; daughter has asthma; paternal grandfather has asthma; father has diabetes; mother has stroke, brain aneurysm, hypertension. SOCIAL HISTORY: . Quit smoking in 2015. Smoked 0.2 packs a day for 0.5 years. No alcohol, no drug use. REVIEW OF SYSTEMS: As per HPI. Rest of the review of systems is negative. Admission Exam Per Admitting Provider GENERAL: The patient is of moderate build, not in acute distress. VITAL SIGNS: Temperature 38.1, pulse 105, respiratory rate 14, blood pressure 153/94, oxygen 98% on room air. HEENT: Left eye is blind. No facial droop. Oral mucosa moist. tender enlarged lymph node seen in the posterior aspect of the right ear. NECK: No neck masses noted. Supple. CARDIOVASCULAR: S1 and S2 heard. Regular rate and rhythm. No murmur, no gallop. RESPIRATORY SYSTEM: Normal AP diameter. No accessory muscle use. No wheezing or crackles. ABDOMEN: Soft, bowel sounds present, nontender, no distention. CENTRAL NERVOUS SYSTEM: Cranial nerves II-XII grossly intact, nonfocal. EXTREMITIES: No edema, no erythema. SKIN: Pustular rash seen in the feet and soles and palms and wrist. Principal Diagnosis Severe sepsis POA Increased blood lactic acid level Infected pustular psoriasis of hands and feet Discharge Exam GENERAL: Alert and oriented x3. NAD, on RA. HEENT: No pallor, no icterus. Pupils equal, round and reactive to light. Oral mucosa moist. Right posterior auricular lymphadenopathy, tender. NECK: No JVD, no neck masses. HEART: S1 and S2 heard. Regular rate and rhythm. No murmur, no gallop. RESPIRATORY SYSTEM: Normal AP diameter. No accessory muscle use. No wheezing, no crackles. ABDOMEN: Soft, bowel sounds present, nontender, no distention. CENTRAL NERVOUS SYSTEM: No facial droop. Speech is clear. Obeys simple commands. Moves extremities. EXTREMITIES: No edema, no erythema seen. skin: Psoriatic lesions over the scalp, dorsum of the upper limbs and lower limbs. Increased psoriatic lesions over dorsum of the hands and feet -pustular rash. 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 Increase blood lactic acid level Infected pustular psoriasis of hands and feet Came in with worsening pustular psoriasis of hands and feet along with clear drainage since last 2 weeks CUSH[employer] Per Outpatient dermatology, pustular psoriasis likely as a side effect of infliximab Was started on topical treatment per dermatology as an outpatient with not much improvement. Status post IV fluid resuscitation, lactic acid normalized At presentation - right postauricular tender LAD and confluent rashes over the dorsum of her hands and feet. Symptoms getting better. Fever getting better. Started on vancomycin and cefepime in the ED, changed to Augmentin for 10 more days on discharge. Add probiotics. ID evaled: Appreciate recommendation. Discussed with rheumatology 07/02, patient has history of noncompliance, will continue with the topical ointment for now, patient has a scheduled follow-up with rheumatology coming Tuesday on which patient is advised to maintain to fine tune her psoriasis management. Continue with the steroid cream and tacrolimus ointment. Patient to follow-up with freelance translator within a week time upon discharge. Other chronic medical conditions: Right eye uveitis: On infliximab currently, will hold currently, patient has rheumatology follow-up on of this month. Patient is to maintain this appointment for appropriate treatment plan. CKD stage III: Seems to be at her baseline. HTN: Continue home meds. Blood pressure on the higher side in the evening and night, continue with amlodipine in the evening. It has been discussed with the patient. Patient to maintain blood pressure measurement log to take to primary care physician for adjustment of her blood pressure medication for long- term management. Left eye blindness: Secondary to left eye glaucoma. Continue eyedrops DVT prophylaxis: Lovenox Full code Patient being discharged home with following instruction at the point of discharge: Follow-up with the primary care physician within a week time and likely you will need labs CBC/CMP/magnesium/phosphorus. Follow-up with your dermatology within a week time. Follow-up with your rheumatology on July 07 as scheduled. IT IS VERY IMPORTANT. Please maintain follow-up with your doctors, it is very important for management of your psoriasis and ongoing infection. Apply skin ointment as recommended by dermatology prior to admission. You will be discharged on antibiotic to complete the course of treatment for infection of your psoriasis and legs and hands. For your blood pressure, measure blood pressure twice a day and maintain a log to take to your primary care physician so that your blood pressure medication can be adjusted appropriately. For now, amlodipine has been added for the evening, continue to take your lisinopril in the morning. Take your medications as prescribed. Please make sure that you are able to get your medications today by calling your pharmacy before you leave the hospital so that your treatment continuity is not broken. Home Health Attestation I certify that this patient is under my care and that I, or a physicians community relations assistant working with me, had a face to-face encounter that meets the home health [id number] encounter requirements with this patient. The encounter with the patient was in whole, or in part, for the following medical condition, which is the primary reason for home health care (list medical condition): I certify that, based on my findings, the following services are medically necessary home health services: My clinical findings support the need for the above services because: Further, I certify that my clinical findings support that this patient is homebound (i.e. absences from home require considerable and taxing effort and are for medical reasons or latter-day services or infrequently or of short duration when for other reasons) because: Certification for Home Health Services: Based on the above findings, I certify that this patient is confined to the home and needs intermittent residential care, physical therapy and/or speech therapy or continues to need occupational therapy. The patient is under my care, and I have initiated the establishment of the plan of care. This patient will be followed by a physician who will periodically review the plan of care. Total Time Total Time Spent Total Time Spent (In Minutes): 45 Discharge Plan Discharge Items Patient Disposition: Home - Self-Care Reason For Visit: HEADACHE, FEVER Discharge Diagnosis: Severe sepsis POA Increased blood lactic acid level Infected pustular psoriasis of hands and feet Condition on Discharge: Fair Activity: Resume your previous activity Non-emergency contact: Primary Care Provider Call non-emergency contact if: you have any medication questions, your symptoms worsen and your temperature is above 101 Follow-up/Referrals: Sandy Kapoor PA-C [Outside Practitioners] - (Date & Time 07/07/2022 9:30 AM Provider Sandy Kapoor PA-C Department Rheumatology [facility] ) Frederic Mccray MD [Primary Care Provider] - (Date & Time 07/13/2022 1:40 PM Provider Frederic Mccray MD Department [facility] ) Diet: Heart Healthy Addtl Attending Provider Instructions: Follow-up with the primary care physician within a week time and likely you will need labs CBC/CMP/magnesium/phosphorus. Follow-up with your dermatology within a week time. Follow-up with your rheumatology on July 07 as scheduled. IT IS VERY IMPORTANT. Please maintain follow-up with your doctors, it is very important for management of your psoriasis and ongoing infection. Apply skin ointment as recommended by dermatology prior to admission. You will be discharged on antibiotic to complete the course of treatment for infection of your psoriasis and legs and hands. For your blood pressure, measure blood pressure twice a day and maintain a log to take to your primary care physician so that your blood pressure medication can be adjusted appropriately. For now, amlodipine has been added for the evening, continue to take your lisinopril in the morning. Take your medications as prescribed. Please make sure that you are able to get your medications today by calling your pharmacy before you leave the hospital so that your treatment continuity is not broken. Pending Studies at Discharge: Yes Stand-Alone Forms: My [facility], Smoking Cessation Medications and DC Order Prescriptions: New amlodipine [Norvasc] 5 mg Tablet 5 mg PO HS Qty: 30 0RF amoxicillin-pot clavulanate 500-125 mg tablet 1 tab PO BID 10 Days Qty: 20 0RF Probiotic 3 billion cell capsule 3,000 mmu cells PO DAILY 14 Days Qty: 14 0RF Rx Instructions: administer with a meal Continued lisinopril 20 mg Tablet 20 mg PO QAM triamcinolone acetonide 0.1 % Cream 1 applic TOPICAL BID Rx Instructions: APPLY TO HANDS & FEET prednisolone acetate 1 % Drops,Suspension 1 drp OPB 6XD tacrolimus 0.1 % Ointment 1 applic TOPICAL BID Rx Instructions: APPLY TO HANDS & FEET betamethasone dipropionate 0.05 % Cream 1 applic TOPICAL BID Rx Instructions: APPLY TO HANDS & FEET albuterol sulfate 90 mcg/actuation HFA aerosol inhaler 2 puff INHALATION Q4H PRN (Reason: Wheezing) timolol maleate 0.5 % Drops 1 drp OPB BID atropine 1 % Drops 1 drp OPR BID brimonidine 0.15 % Drops 1 drp OPB TID Rx Instructions: administer approximately 8 hours apart dorzolamide 2 % Drops 1 drp OPB TID difluprednate 0.05 % Drops 1 drp OPR QID Rx Instructions: start 24 hours after surgery lurasidone [Latuda] 20 mg Tablet 20 mg PO PM Rx Instructions: PT UNSURE OF STRENGTH, STATED "LOWEST DOSE", UNABLE TO VERIFY WITH GMG OR EXT MED HX. must administer with food (at least 350 calories) Discharge Orders: Discharge Order (Routine); Ordered 07/05/22 Ordered By: Justina Campbell Admission Data Admit Date/Time: 07/01/22 22:42 Attending Provider: Justina Campbell Admit Provider: Stanley Araiza Primary Care Provider: Frederic Mccray Other Providers: Stanley Araiza ; Jorge Beavers ; Teresita Markham ; Duncan Jacobs I. ; Froylan Guerrero II ; Shayy Oliva ; Garcia Castillo ; Vaughn Rivera ; Charisse Bowens
[2022-07-05] MEDS ORDERED: VANCOMYCIN HCL 1,250 MG in SODIUM CHLORIDE 0.9% 250 ML IV SCH (20:00)
== END 2022-07-05 15:02 | disposition home or self-care (01) | DRG 872 ==
LOC: ED 19:20 → 2N 22:42